=== PATIENT | male | born 1970 | race Caucasian/White ===

== ENCOUNTER 2023-04-08 06:46 | Observation (INO) ==
--- NOTE | 2023-03-06 12:12 | PAT Medication Instructions ---
Medication Instructions Date of Service March 06, 2023 Home Medications amlodipine 5 mg tablet 5 mg PO QAM lisinopril 20 mg tablet 20 mg PO BID multivitamin 1 tab PO QAM omega-3 fatty acids 1,000 mg PO QAM STOP taking 2 weeks before surgery (or as soon as possible if surgery is within 2 weeks) omega-3 fatty acids 1,000 mg PO QAM DO NOT take the morning of surgery lisinopril 20 mg tablet 20 mg PO BID multivitamin 1 tab PO QAM Take morning of surgery With a small sip of water, OTHERWISE NOTHING TO EAT OR DRINK AFTER MIDNIGHT: amlodipine 5 mg tablet 5 mg PO QAM Take evening before surgery lisinopril 20 mg tablet 20 mg PO BID Other Notes If you have any questions please call us at [phone] or [phone] or [phone] or [phone]
--- NOTE | 2023-03-12 14:20 | Anesthesiology Consultation ---
Date of Service March 12, 2023 Assessment & Plan (1) Encounter for pre-operative examination: Chart Review Chart Review: Acceptable Risk for Surgery and Patient seen in Pre Admission Testing Pt currently scheduled as 23 hours observation. If surgeon decides to change patient to Same Day Joint, patient would be acceptable risk for TKA, pending patient is motivated, has good support and surgeon's office completes Same Day Joint Program preop requirements. Per PAT appt on 03/12/23, no recent illness/disease exposures, illness related symptoms, or recent illness/disease positive tests. Will leave to surgeon's discretion if preop Covid testing needed Teaching & Discussion Pre-Anesthesia Teaching/Discussion Notes: Instructed NPO after midnight before surgery,except medications with 15 cc of water. Medication instructions provided according to the PAT guidelines. History Surgery Operation Date: 04/08/23 08:55 Proposed Procedures p Right Total Knee Arthroplasty - Jairo Mcdonald, Height/Weight Height: 6 ft 2 in Weight: 147.4 kg Allergies Allergy/AdvReac Type Severity Reaction Status Date / Time No Known Allergies Allergy Verified 03/04/23 15:34 Medications Home Medications Medication Instructions Recorded Confirmed Last Taken amlodipine 5 mg tablet 5 mg PO QAM 03/04/23 03/04/23 Unknown lisinopril 20 mg tablet 20 mg PO BID 03/04/23 03/04/23 Unknown multivitamin 1 tab PO QAM 03/04/23 03/04/23 Unknown omega-3 fatty acids 1,000 mg PO QAM 03/04/23 03/04/23 Unknown Past Medical History Medical History HTN (hypertension) Osteoarthritis Varicose veins of both lower extremities with pain S/p left LE ablation around 2012 Exercise / Class Metabolic Activity II 4-5 Yardwork/Stairs/Walk up hill (one flight of stairs - no chest pain or SOB ) Past Family History Family History Other No family history of adverse response to anesthesia Past Surgical History Surgical History History of colonoscopy Past Anesthesia History No Hx of Anesthesia Complications and No Family Hx of Anesthesia Complications History of PONV No Hx of PONV and No Hx of Motion Sickness Social History Smoking Status: Never smoker Do You Dip or Chew Tobacco: No Hx Alcohol Use: Yes Alcohol type: beer, wine and hard liquor alcohol intake frequency: a few times a week Hx Substance Use: No substance use type: does not use Review of Systems - Chronic dry cough- stable Patient denies chest pain, shortness of breath, dyspnea on exertion, reflux, wheezing, palpitations. No hx of seizures, stroke, AK, apnea/snoring. No hx of blood clots or blood transfusions Physical Exam Vital Signs VITALS BP 143/83 P 59 TEMP 98.0 SP02 97% RESP 16 Constitutional no acute distress ENMT Mouth: no TMJ clicking Thyromental Distance: > or= 3.5 Finger Breadths (3.5) Mallampati Class: I [place] to left side tooth Neck neck extension not limited Respiratory normal respiratory effort; no respiratory distress Auscultation: lungs clear to auscultation bilaterally; no wheezes Cardiovascular Rate/Rhythm: regular rate and regular rhythm Heart Sounds: no murmur Vessels: no carotid bruit Musculoskeletal Spine: no pain with cervical ROM Extremities: extremities normal to inspection Psychiatric Orientation: alert Lab Results Anesthesia Preop Results Results Anesthesia Widget: WBC 5.71 K/ul (4.8-10.8) 03/12/23 Hgb 13.9 g/dl (14.0-18.0) L 03/12/23 Hct 39.7 % (42.0-52.0) L 03/12/23 Plt 323 K/uL (130-400) 03/12/23 Na 135 mmol/L (136-145) L 03/12/23 K 3.9 mmol/L (3.5-5.1) 03/12/23 Cl 103 mmol/L (98-107) 03/12/23 CO2 27 mmol/L (21-32) 03/12/23 BUN 14 mg/dl (6-23) 03/12/23 Creat 0.85 mg/dl (0.6-1.4) 03/12/23 Glucose Level 83 mg/dl (70-99(Fasting)) 03/12/23 PT 10.9 Seconds (9.0-12.0) 03/12/23 PTT 29.6 Seconds (21.0-31.0) 03/12/23 INR 1.0 (0.9-1.1) 03/12/23 Blood Type A Positive 03/12/23 Antibody Screen NEGATIVE 03/12/23 Testing Electrocardiogram Date: 03/12/23 Findings: + NSR @ (60bpm) Normal EKG per cardio Chest X-Ray Date: 03/12/23 FINDINGS: Lung volumes are normal. Lungs are clear. There is no pneumothorax or pleural effusion. Cardiac size is normal. Mediastinal contours are normal. There is no evidence for pulmonary edema. IMPRESSION: No acute cardiopulmonary findings.
--- NOTE | 2023-04-08 06:34 | History & Physical Bridge Note ---
Date of Service April 08, 2023 History & Physical Bridge Note I have examined the patient, reviewed the History & Physical and in the interval since the performance of the History & Physical I have noted the following changes of clinical significance: no changes noted
[~2023-04-08 06:46] MED LIST: ACETAMINOPHEN 500 MG TAB PO SCH; BUPIVACAINE 0.25% PF 30 ML VIAL ONE; BUPIVACAINE 0.5 % 5 MG/1 ML PF 10ML VIAL ONE; FAMOTIDINE 20 MG TAB PO SCH; GABAPENTIN 900 MG DOSE PO SCH; LR 500ML BOLUS, THEN 15ML/HR IV SCH; LR 60ML/HR IV SCH; ORTHO JOINT MIX INFIL SCH; TRANEXAMIC ACID 1,000 MG **IV Intra-op IV SCH; TRANEXAMIC ACID 1,000 MG **IV Pre-op IV SCH; dexAMETHasone 4 MG TAB PO SCH
[2023-04-08] MEDS ORDERED: fentaNYL citrate PF 100 MCG/2 ML VIAL ONE (07:15)
[2023-04-08] MEDS ORDERED: MIDAZOLAM HCL 1 MG/ML 2ML VIAL ONE ×2 (07:15→08:06)
[2023-04-08] MEDS ORDERED: ATROPINE SULFATE 0.1 MG/ML 10ML SYR IV PRN (08:11)
[2023-04-08] MEDS ORDERED: fentaNYL citrate PF 100 MCG/2 ML VIAL IV PRN (08:11)
[2023-04-08] MEDS ORDERED: ePHEDrine sulfate 50 MG/ML AMP IV PRN (08:11)
[2023-04-08] MEDS ORDERED: ONDANSETRON INJ 2 MG/ML 2 ML VIAL IV PRN ×2 (08:11→12:00)
[2023-04-08] MEDS ORDERED: ORTHO JOINT ANESTHETIC ONE (08:26)
[2023-04-08] MEDS ORDERED: PROPOFOL IV EMULSION 10 MG/ML 20 ML VIAL IV ONE ×5 (09:12→10:19)
[2023-04-08] MEDS ORDERED: KETOROLAC 30 MG/ML VIAL ONE (09:12)
[2023-04-08] MEDS ORDERED: LIDOCAINE 2% 2 ML VIAL/AMP(20MG/ML) INFIL ONE (09:12)
[2023-04-08] MEDS ORDERED: ONDANSETRON INJ 2 MG/ML 2 ML VIAL ONE (09:12)
--- NOTE | 2023-04-08 10:41 | Operative Report ---
PG Post Operative Report Pre & Post Diagnosis Operation Date: 04/08/23 08:40 Pre-Op Diagnosis: Degenerative joint disease right knee. Post-Op Diagnosis: Degenerative joint disease right knee. I identified the patient and participated in the time-out.: Yes Procedure Operation Date: 04/08/23 08:40 Actual Procedures p Right Total Knee Arthroplasty(Right) - Jairo Mcdonald DO Surgeon Jairo Mcdonald DO Heart Nurse Jairo Prado PA-C Estimated Blood Loss 30 Findings Consistent with Post-Op Diagnosis Specimens Right femoral tibial bone Description of Procedure Implants used: I used a Zeenat Persona total knee arthroplasty system with a size 12 PS femur, H tibia, 37 oval patella, and a size 12 CPS polyethylene bearing. All components were cemented in place with Biomet cement. Rashawn arrived [facility] for the above procedure. He was seen in the preoperative holding area and the operative extremity was identified and signed. He was given a preoperative antibiotic, TXA, a spinal anesthetic and an adductor nerve block. He was taken back to the operating room and laid on the table in supine position. He was given basic sedation. The operative knee was then prepped and draped in sterile fashion. A timeout was done, and the patient and the operative extremity was properly identified. A midline incision was made directly over the patella. Dissection was taken down to the extensor mechanism. A medial parapatellar arthrotomy was used. The medial retinaculum was released and the fat pad was mostly excised. The knee was flexed and the ACL, PCL, and meniscus were removed. A drill was sent down the center of the femoral canal followed by an intramedullary nate. Off that nate a distal femoral cutting block was placed. 9 mm was resected off the distal femur at 5 of valgus. A posterior referencing AP sizing guide was then placed on the distal femur. The femur measured to be a size 12. 2 drill holes were placed in 3 of external rotation. A 4-in-1 cutting block was then impacted into place. Anterior, posterior, and chamfer cuts were then made. The proximal tibia was then exposed. An external tibial alignment guide was placed. A tibial cut guide was then anchored in place and the proximal tibia was then resected. The posterior aspect of the knee was then opened up and any additional meniscus fragments and osteophytes were removed. The tibia measured to be a size H. The tibial plate was then placed in the appropriate rotation and the tibia was drilled and punched. Trial components were then placed. I used a size 12 CPS polyethylene insert. The knee was brought through a full range of motion and felt to be stable. The peg holes for the femoral component were then drilled. The patella was then everted and 9 mm was resected off the posterior aspect of the patella. The patella measured to be a size 37 oval. 3 peg holes were then drilled. A trial patella was placed. The knee was once again brought through a full range of motion and felt to be stable. Trial components were then removed. The surrounding soft tissues were injected with 100 cc of an orthopedic pain control cocktail. All components were then cemented into place with Biomet cement. The final polyethylene insert was then snapped into place. Once cement was dry the tourniquet was deflated. Hemostasis was obtained. A dilute betadyne lavage was then done for 3 minutes. The joint was then irrigated with normal saline solution. The medial parapatellar arthrotomy was then closed with #1 Vicryl suture. The skin was closed with 2-0 Vicryl, 3-0V lock suture, and clementine. A soft compressive dressing was placed. He was then transferred to a hospital bed and taken to the postanesthesia care unit in stable condition. He tolerated the procedure well. Jario Prado PA-C, was present for the entire procedure. He was critical for patient positioning, prepping, draping, retraction exposure, wound closure and application of sterile dressing. I attest to the content of the Intraoperative Record and any orders documented therein. Any exceptions are noted below.
--- NOTE | 2023-04-08 11:52 | XRay Report ---
TWO VIEWS RIGHT KNEE CLINICAL HISTORY: Postoperative examination. FINDINGS: AP and crosstable lateral portable views of the right knee are obtained. A right knee arthr oplasty is in near anatomic alignment. There has been undersurface remodeling of the patella. No acut e fracture is seen. There are expected postoperative changes around the knee including skin clips, so ft tissue edema, and subcutaneous gas. IMPRESSION: Expected postoperative changes status post right knee arthroplasty. No acute fracture is seen. ACT 112: Negative or not required by law. Electronically signed by: Toñito Gomez M.D. 04/08/2023 11:50 AM
[2023-04-08] MEDS ORDERED: bisacodyL 10 MG SUPP PR PRN (12:00)
[2023-04-08] MEDS ORDERED: NALOXONE HCL 0.4 MG/1 ML VIAL/CARP IV PRN (12:00)
[2023-04-08] MEDS ORDERED: HYDROmorphone INJ 0.5 MG/0.5 ML SYR IV PRN (12:00)
[2023-04-08] MEDS ORDERED: METOCLOPRAMIDE HCL INJ 5 MG/ML 2 ML VIAL IV PRN (12:00)
[2023-04-08] MEDS ORDERED: MAGNESIUM HYDROXIDE SUSP 30 ML UDC PO PRN (12:00)
[2023-04-08] MEDS: SODIUM CHLORIDE 0.9% 1,000 ML IV SCH ×2 (12:15→23:06)
--- NOTE | 2023-04-08 14:38 | Anesthesiology Progress Note ---
Date of Service April 08, 2023 Anesthesia Post Procedure Vital Signs Vital Signs: Temp Pulse Pulse Resp BP Pulse Ox O2 Del Method 04/08/23 14:00 36.7 C 68 16 129/73 97 Room Air 04/08/23 12:54 36.7 C 60 16 137/86 97 Room Air 04/08/23 12:26 36.4 C L 67 16 144/89 H 99 Room Air 04/08/23 12:01 36.5 C 63 18 143/83 H 97 Room Air 04/08/23 11:45 57 L 13 132/78 97 Room Air 04/08/23 11:35 62 15 137/83 99 Room Air 04/08/23 11:25 64 14 132/83 97 Room Air 04/08/23 11:15 67 18 141/76 H 97 Room Air 04/08/23 11:05 61 20 117/81 100 Oxymask 04/08/23 10:57 69 19 135/78 98 Oxymask 04/08/23 07:21 36.7 C 71 20 177/91 H 98 Room Air O2 Flow Rate 04/08/23 14:00 04/08/23 12:54 04/08/23 12:26 04/08/23 12:01 04/08/23 11:45 04/08/23 11:35 04/08/23 11:25 04/08/23 11:15 04/08/23 11:05 3 04/08/23 10:57 6 04/08/23 07:21 Pain Intensity Left Knee: Pain Intensity: 2 Transfer of Care Handoff Completed per policy Notes Mental Status: alert / awake / arousable and participated in evaluation Patient Amnestic to Procedure: Yes Nausea / Vomiting: adequately controlled Pain: adequately controlled Airway Patency, RR, SpO2: stable & adequate BP & HR: stable & adequate Hydration State: stable & adequate Neuraxial Anesthesia: was administered and sensory block is resolving Anesthetic Complications: no major complications apparent and Pt Satisfied with anesthetic care
[2023-04-08] MEDS: ACETAMINOPHEN 500 MG TAB PO SCH ×2 (16:48→22:54)
[2023-04-08] MEDS: KETOROLAC 30 MG/ML VIAL IV SCH ×2 (16:49→22:02)
[2023-04-08] MEDS: ceFAZolin 2000MG 2,000 MG/15 ML SYR IV SCH ×2 (16:50→22:55)
[2023-04-08] MEDS: lisinopril 20 MG TAB PO SCH (20:22)
[2023-04-08] MEDS: ASPIRIN 81 MG ECTAB PO SCH (20:23)
[2023-04-08] MEDS: DOCUSATE SODIUM 100 MG CAP PO SCH (20:23)
[2023-04-08] MEDS ORDERED: SENNA 8.6 MG TAB PO SCH (21:00)
[2023-04-08] MEDS: oxyCODONE HCL IR 5 MG TAB (IMMEDIATE RELEASE) PO PRN (22:50)
[2023-04-09] MEDS: KETOROLAC 30 MG/ML VIAL IV SCH ×2 (05:26→10:19)
[2023-04-09] MEDS: oxyCODONE HCL IR 5 MG TAB (IMMEDIATE RELEASE) PO PRN (07:54)
[2023-04-09] MEDS ORDERED: dexAMETHasone 4 MG TAB PO SCH (08:00)
[2023-04-09] MEDS: ACETAMINOPHEN 500 MG TAB PO SCH (08:32)
[2023-04-09] MEDS: DOCUSATE SODIUM 100 MG CAP PO SCH (08:33)
[2023-04-09] MEDS: ASPIRIN 81 MG ECTAB PO SCH (08:33)
[2023-04-09] MEDS: lisinopril 20 MG TAB PO SCH (08:34)
[2023-04-09] MEDS ORDERED: MULTIVITAMIN TAB PO SCH (09:00)
[2023-04-09] MEDS ORDERED: amLODIPine BESYLATE 5 MG TAB PO SCH (09:00)
--- NOTE | 2023-04-09 09:31 | Orthopedic Progress Note ---
Date of Service April 09, 2023 Assessment & Plan (1) Status post right knee replacement: Overall he is doing very well today with good pain control to the right knee. He will be seen and evaluated today for ambulation and range of motion exercises. He is on aspirin for DVT prophylaxis. He can be discharged home later today. He will follow-up with orthopedics in 2 weeks. Austin Morocho was seen and evaluated at bedside this morning. Overall he is doing very well with good pain control to the right knee. He has been up and ambulating to the bathroom. He has no other complaints today. Review of Systems All systems reviewed & are unremarkable except as noted in HPI & below. Physical Exam . On physical examination of the right knee, the dressings are clean, dry, intact. His leg is out in full extension. He has active dorsiflexion plantarflexion of the right ankle. Normal sensation. Neurovascularly intact. Results & Data Results & Data Laboratory Results . Diagnostic Findings . Postoperative x-rays of the right knee show the prosthesis to be in anatomical alignment without any evidence of fracture complication or loosening. PG Care Time/CCT Total # of Minutes Spent Total Time Spent with Patient: Total time spent is greater than 50% in coordination of care (as documented) at patient's floor/unit and/or counseling patient: Coding Level of Care Code 54165 Post Operative Follow-Up Diagnoses Status post right knee replacement Z96.651
--- NOTE | 2023-04-09 09:34 | Discharge Summary ---
Date of Service April 09, 2023 Principal Diagnosis Same as "Discharge Diagnosis" noted below under Discharge Instructions. Discharge Exam . On physical examination of the right knee, the dressings are clean, dry, intact. His leg is out in full extension. He has active dorsiflexion plantarflexion of the right ankle. Normal sensation. Neurovascularly intact. Discharge Data Procedures Performed Operation Date: 04/08/23 08:40 Actual Procedures p Right Total Knee Arthroplasty(Right) - Jairo Mcdonald DO Ordered Studies 04/08/23 05:00 US - OR guided needle placemen Routine Hospital Course (1) Status post right knee replacement: On April 08, 2023 Rashawn arrived at [facility] and underwent a right knee replacement without complications. He had a spinal anesthetic. Postoperatively he was started on aspirin for DVT prophylaxis and transferred to the general orthopedic floors. His hospital course was uneventful. On postoperative day #1, his vital signs were stable and his pain was well-control led. He was able to participate well with physical therapy doing ambulation and range of motion exercises. He was then discharged home. He will follow-up with orthopedics in 2 weeks for postoperative care. PG Care Time/CCT Total # of Minutes Spent Total Time Spent with Patient: Total time spent is greater than 50% in coordination of care (as documented) at patient's floor/unit and/or counseling patient: Discharge Plan Discharge Items Patient Disposition: Home - Home Health Services Reason For Visit: DJD Right Knee Discharge Diagnosis: Right knee replacement Activity: Per Instructions section Non-emergency contact: Surgeon Call non-emergency contact if: your wound has increased redness and your wound has increased drainage Follow-up/Referrals: Lars Harris MD [Primary Care Provider] - Diet: Regular Addtl Attending Provider Instructions: Activity and Therapy Recommendations: * If you are using [facility] then therapy will be provided at your home until they feel you have accomplished all of your goals. * If you are using [facility] then Physical Therapy will be provided until they feel you are ready to start Outpatient Physical Therapy. * If you are not using home therapy then Outpatient Physical Therapy should start about 3-5 days from your day of surgery. Therapy will last about 6-10 weeks * It is important not to put a pillow under your knee when you are relaxing or sleeping. It is just as important to make sure you are getting your knee perfectly straight as it is to regain your knee bend. * You were shown a series of exercises in the hospital. Do these exercises three times each day including the exercises you were shown in physical therapy. * Get up and walk several times each day. For the first four weeks, try not to stand or walk for more than one hour at a time. If you do stand or walk for more than one hour, you will not hurt anything, but your leg will likely swell. * As you feel comfortable, you may change from the walker or crutches to a cane and then to independent walking. Medications: * Narcotic You will likely be sent home from the hospital with a prescription for the narcotic pain medication that worked best throughout your stay. * Aspirin Most patients will be required to take Aspirin 81mg twice a day for 6 weeks after surgery. This is obtained [id number] and a prescription is not necessary. * Cefadroxil -take the antibiotic twice a day for 10 days to help prevent infection. * Other medications may be prescribed for specific circumstances. If you have any questions, please call the office at . * Resume previous home medications unless otherwise instructed TEDs/Elastic Stockings: The white elastic stockings help limit swelling and prevent blood clots from forming in your legs.~ The more you wear them, the more they work. Wear them for six weeks. Dressing Care: The dressing can be changed after physical therapy on postop day #1. Daily dry dressing changes for a few days, especially if the incision is still draining some. If the incision is not draining then you may leave the clementine open to air. If there is a little bit of drainage or if the clementine are getting stuck on your clothing then cover the incision with a dry dressing. The clementine will be removed at your 2 week follow-up appointment. Showering: You may shower 5 days from the day of surgery as long as the incision is no longer draining. You may shower with the clementine exposed. Let soapy water run over the clementine and pat them dry. Do not scrub or soak the incision. Things To Watch For: * Drainage from the incision site that occurs more than one week after your surgery. * Increased redness at the incision site. * Fever above 102 degrees Fahrenheit. * Unusual chest pain or shortness of breath. * Call [facility] at with any of the above problems Follow-Up Visit: Follow-up with Dr. Mcdonald's PA (Jairo Prado) 2-3 weeks after your day of surgery. He will remove your clementine and answer any questions. If you have any additional questions or concerns, Dr Mcdonald is usually in the office at the same time and will be available An appointment was probably scheduled when you signed-up for surgery in the office. If you have any questions call Office Instructions: More detailed instructions as well as Frequently Asked Questions were provided in a folder by our office when you signed-up for surgery. Please review these instructions when you get home. If you have any further questions or concerns, please feel free to call the office at [phone] Pending Studies at Discharge: No Stand-Alone Forms: My [facility] Medications and DC Order Prescriptions: New aspirin 81 mg Tablet,Delayed Release (Dr/Ec) 81 mg PO BID 42 Days Qty: 0 0RF oxycodone 5 mg Tablet 5 - 10 mg PO Q4H PRN (Reason: pain) Qty: 30 0RF cefadroxil 500 mg capsule 500 mg PO BID Qty: 20 0RF Continued multivitamin Tablet 1 tab PO QAM lisinopril 20 mg Tablet 20 mg PO BID amlodipine 5 mg Tablet 5 mg PO QAM omega-3 fatty acids Capsule 1,000 mg PO QAM Admission Data Admit Date/Time: 04/08/23 10:57 Attending Provider: Jairo Mcdonald Admit Provider: Jairo Mcdonald Primary Care Provider: Lars Harris Principal Diagnosis Same as discharge diagnosis noted under discharge instructions.
== END 2023-04-09 10:57 | disposition home health service (06) ==
LOC: 3E 06:46 → ASU 06:46
DX: E66.9 Obesity, unspecified; Z79.899 Other long term (current) drug therapy; Z68.41 Body mass index [BMI] 40.0-44.9, adult; M17.11 Unilateral primary osteoarthritis, right knee